=== PATIENT | female | born 1965 | race Caucasian/White ===

== ENCOUNTER 2017-09-02 09:13 | Emergency (ER) | payer OTHER ==
[2017-09-02] MEDS ORDERED: ZOFRAN ODT PO ONE (11:16)
[2017-09-02] MEDS ORDERED: PHENERGAN PO ONE (11:17)
--- NOTE | 2017-09-02 11:24 | Emergency Department Report ---
ED General Adult HPI - General Chief complaint: Nausea/Vomiting/Diarrhea Stated complaint: NAUSEA/ABD PAIN Time Seen by Provider: 09/02/17 11:02 Source: patient, digital assistant Mode of arrival: Wheelchair Limitations: Language Barrier - History of Present Illness Initial comments: Patient presents to the emergency department with a chief complaint of nausea 1 week along with vomiting. Patient denies any abdominal pain, diarrhea, chest pain or fever. Patient has no other complaints. Not aware of sick contacts -: Sudden Location: abdomen Radiation: non-radiation Severity scale (0 -10): 0 Consistency: constant Improves with: none Worsens with: none Associated Symptoms: denies other symptoms Treatments Prior to Arrival: none - Related Data Previous Rx's Medication Instructions Recorded Last Taken Type Ondansetron [Zofran Odt] 4 mg PO Q6HR PRN #20 tab.rapdis 09/02/17 Unknown Rx Promethazine [Phenergan TAB] 25 mg PO Q6HR PRN #20 tab 09/02/17 Unknown Rx Allergies Allergy/AdvReac Type Severity Reaction Status Date / Time No Known Allergies Allergy Unverified 09/02/17 09:29 ED Review of Systems ROS: Stated complaint: NAUSEA/ABD PAIN Other details as noted in HPI Constitutional: denies: chills, fever Eyes: denies: eye pain, eye discharge, vision change ENT: denies: ear pain, throat pain Respiratory: denies: cough, shortness of breath, wheezing Cardiovascular: denies: chest pain, palpitations Endocrine: no symptoms reported Gastrointestinal: denies: abdominal pain, nausea, diarrhea Genitourinary: denies: urgency, dysuria, discharge Musculoskeletal: denies: back pain, joint swelling, arthralgia Skin: denies: rash, lesions Neurological: denies: headache, weakness, paresthesias Psychiatric: denies: anxiety, depression Hematological/Lymphatic: denies: easy bleeding, easy bruising ED Past Medical Hx - Past Medical History Hx Hypertension: Yes Hx Diabetes: Yes Additional medical history: high cholesterol - Surgical History Past Surgical History?: No - Social History Smoking Status: Never Smoker Substance Use Type: None - Medications Home Medications: Home Medications Medication Instructions Recorded Confirmed Last Taken Type Ondansetron [Zofran Odt] 4 mg PO Q6HR PRN #20 tab.rapdis 09/02/17 Unknown Rx Promethazine [Phenergan TAB] 25 mg PO Q6HR PRN #20 tab 09/02/17 Unknown Rx ED Physical Exam - General Limitations: Language Barrier General appearance: alert, in no apparent distress - Head Head exam: Present: atraumatic, normocephalic - Eye Eye exam: Present: normal appearance - ENT ENT exam: Present: mucous membranes moist - Neck Neck exam: Present: normal inspection - Respiratory Respiratory exam: Present: normal lung sounds bilaterally. Absent: respiratory distress - Cardiovascular Cardiovascular Exam: Present: regular rate, normal rhythm. Absent: systolic murmur, diastolic murmur, rubs, gallop - GI/Abdominal GI/Abdominal exam: Present: soft, normal bowel sounds. Absent: distended, tenderness - Extremities Exam Extremities exam: Present: normal inspection - Back Exam Back exam: Present: normal inspection - Neurological Exam Neurological exam: Present: alert, oriented X3 - Psychiatric Psychiatric exam: Present: normal affect, normal mood - Skin Skin exam: Present: warm, dry, intact, normal color. Absent: rash ED Course Vital Signs 09/02/17 09/02/17 09:29 12:51 Temperature 97.4 F L 98.4 F Pulse Rate 63 77 Respiratory 18 15 Rate Blood Pressure 128/74 Blood Pressure 129/64 [Left] O2 Sat by Pulse 100 98 Oximetry ED Medical Decision Making - Lab Data Result diagrams: 09/02/17 11:32 09/02/17 11:32 - Medical Decision Making Discussed results with the patient through her digital assistant Patient states she feels better after the medications Critical care attestation.: If time is entered above; I have spent that time in minutes in the direct care of this critically ill patient, excluding procedure time. ED Disposition Clinical Impression: Nausea and vomiting Disposition: DC-01 TO HOME OR SELFCARE Is pt being admited?: No Does the pt Need Aspirin: No Condition: Stable Instructions: Acute Nausea and Vomiting (ED) Additional Instructions: Return if worse Prescriptions: Ondansetron [Zofran Odt] 4 mg PO Q6HR PRN #20 tab.rapdis PRN Reason: Nausea Promethazine [Phenergan TAB] 25 mg PO Q6HR PRN #20 tab PRN Reason: Nausea Referrals: PRIMARY CARE,MD [Primary Care Provider] - 3-5 Days [facility] [Outside] - 3-5 Days [facility] [Outside] - 3-5 Days GLORIA PATRICK MD [Staff Physician] - 3-5 Days Time of Disposition: 13:30
[2017-09-02 12:16] LABS: Hematocrit 42.6 % (30.3-42.9); Hemoglobin 14.6 gm/dl (10.1-14.3); Red Blood Count 4.85 M/mm3 (3.65-5.03)
[2017-09-02 12:20] LABS: Basophils % (Auto) 0.6 % (0.0-1.8); Eosinophils % (Auto) 0.4 % (0.0-4.3); Lymphocytes % (Auto) 11.9 % (13.4-35.0); Mean Corpuscular HGB Conc 34 % (30-34); Mean Corpuscular Hemoglobin 30 pg (28-32); Mean Corpuscular Volume 88 fl (79-97); Mean Platelet Volume 4 fl (6-12); Monocytes % (Auto) 2.4 % (0.0-7.3); Platelet Count 22 K/mm3 (140-440); Red Cell Distribution Width 14.4 % (13.2-15.2)
[2017-09-02 12:21] LABS: Monocytes # (Auto) 0.2 K/mm3 (0.0-0.8)
[2017-09-02 12:48] LABS: Alanine Aminotransferase 17 units/L (7-56); Albumin 3.8 g/dL (3.9-5); BUN/Creatinine Ratio 32; Blood Urea Nitrogen 19 mg/dL (7-17); Calcium 8.8 mg/dL (8.4-10.2); Hemolysis Index 17; Lipase 33 units/L (13-60)
[2017-09-02 12:52] VITALS: BP 129/64
== END 2017-09-02 13:58 | disposition home or self-care (01) ==
LOC: ED 09:13
DX: R11.2 Nausea with vomiting, unspecified (principal); I10 Essential (primary) hypertension; E11.9 Type 2 diabetes mellitus without complications; E78.00 Pure hypercholesterolemia, unspecified
CPT/HCPCS: 36415; 80053; 82962; 83690; 85025; 99283; Q0162; Q0169